=== PATIENT | male | born 1970 | race Caucasian/White ===

== ENCOUNTER 2016-09-19 02:29 | Emergency (ER) | payer SELFPAY ==
[~2016-09-19 02:29] MED LIST: PRIL20TA2 PO; TUMS500C PO
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
== END 2016-09-19 04:00 | disposition expired ==
LOC: PHED 02:29
DX: I46.9 Cardiac arrest, cause unspecified (principal); F17.200 Nicotine dependence, unspecified, uncomplicated; Z82.49 Family history of ischemic heart disease and other diseases of the circulatory system; Z86.59 Personal history of other mental and behavioral disorders; Z87.39 Personal history of other diseases of the musculoskeletal system and connective tissue
CPT/HCPCS: 92950